=== PATIENT | male | born 1990 | race Caucasian/White ===

== ENCOUNTER 2019-10-21 14:43 | Emergency (ER) | payer BC ==
[2019-10-21 15:15] VITALS: BP 163/93; PULSE 88; RESP 20; TEMP 98.6
[2019-10-21] MEDS ORDERED: LIDOCAINE 5% PATCH TOPICAL STA (15:55)
[2019-10-21] MEDS ORDERED: CYCLOBENZAPRINE 10MG STARTER 3 TAB BTL PO STA (15:55)
[2019-10-21] MEDS ORDERED: KETOROLAC 30 MG/ML 1 ML VIAL IM STA (15:56)
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
== END 2019-10-21 16:16 | disposition home or self-care (01) ==
LOC: EC 14:43
DX: M54.5 Low back pain (principal); Z87.891 Personal history of nicotine dependence; Z88.0 Allergy status to penicillin
CPT/HCPCS: 99283; 96372; J1885

== ENCOUNTER 2019-12-05 10:12 | Emergency (ER) | payer BC ==
[2019-12-05] MEDS ORDERED: IPRATROPIUM-ALBUTEROL 3 ML NEB INHALATION STA (10:24)
[2019-12-05] MEDS ORDERED: ACETAMINOPHEN TAB 500 MG TAB PO STA (10:24)
[2019-12-05 10:27] VITALS: RESP 18
--- NOTE | 2019-12-05 10:44 | XR ---
EXAMINATION TYPE: XR chest 2V DATE OF EXAM: 12/05/2019 HISTORY: cough. REFERENCE: NONE. FINDINGS: The lungs are clear. Pleural space are clear. The heart is not enlarged. IMPRESSION: NO ACUTE INTRATHORACIC ABNORMALITY.
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
[2019-12-05 11:23] VITALS: BP 127/65; PULSE 95; TEMP 99.9
== END 2019-12-05 11:22 | disposition home or self-care (01) ==
LOC: EC 10:12
DX: J18.9 Pneumonia, unspecified organism (principal); Z88.0 Allergy status to penicillin; Z87.891 Personal history of nicotine dependence
CPT/HCPCS: 71046; 87502; 94640; 99284

== ENCOUNTER → 2023-09-09 | Outpatient (CLI) | payer BC, OTHER ==
--- NOTE | 2023-09-10 07:36 | XR ---
EXAMINATION TYPE: XR chest 2V DATE OF EXAM: 09/09/2023 COMPARISON: 12/05/2019 INDICATION: COPD TECHNIQUE: Frontal and lateral views of the chest are obtained. FINDINGS: The heart size is normal. The pulmonary vasculature is normal. The lungs are clear. IMPRESSION: 1. No acute pulmonary process.
== END | disposition home or self-care (01) ==
LOC: RADXRMAIN 17:31
PROVIDERS: ATTEND Family Medicine
DX: J44.9 Chronic obstructive pulmonary disease, unspecified (principal)
CPT/HCPCS: 71046